=== PATIENT | female | born 1990 | race Caucasian/White ===

== ENCOUNTER 2016-12-03 15:21 | Emergency (ER) | payer MEDICAID ==
[~2016-12-03] VITALS: Ht 167.6 cm; Wt 104.3 kg
[2016-12-03 15:43] VITALS: BP 128/82
--- NOTE | 2016-12-03 19:13 | NUR ---
PATIENT LEFT WITHOUT BEING SEEN BY DR. KUMAR. NO FURTHER CARE PROVIDED FOR PATIENT.
== END 2016-12-03 19:13 | disposition left against medical advice (07) ==
LOC: MED 15:21
DX: N93.9 Abnormal uterine and vaginal bleeding, unspecified (principal); Z53.21 Procedure and treatment not carried out due to patient leaving prior to being seen by health care provider